=== PATIENT | female | born 1970 | race Caucasian/White ===

== ENCOUNTER 2018-06-27 13:38 | Emergency (ER) | payer OTHER ==
[2018-06-27] MEDS ORDERED: ACETAMINOPHEN 325 MG TABLET PO ONE (14:47)
--- NOTE | 2018-06-27 14:51 | ER Document Report ---
HPI - HPI Patient complains to provider of: ankle injury Time Seen by Provider: 06/27/18 14:38 Onset: Yesterday Onset/Duration: Sudden Quality of pain: Achy Pain Level: 3 Context: Patient reports that she was walking down stairs at work while wearing tennis shoes and slipped on algae covered stairs. Patient rolled her left ankle yesterday. Patient complains of lateral ankle tenderness. Associated Symptoms: Other - Left ankle injury Exacerbated by: Standing, Movement, Walking Relieved by: Denies Similar symptoms previously: No Recently seen / treated by doctor: No - ROS ROS below otherwise negative: Yes Systems Reviewed and Negative: Yes All other systems reviewed and negative - CONSTITUTIONAL Constitutional: DENIES: Fever - GASTROINTESTINAL Gastrointestinal: DENIES: Nausea - REPRODUCTIVE Reproductive: DENIES: : - MUSCULOSKELETAL Musculoskeletal: REPORTS: Extremity pain, Swelling - DERM Skin Color: Ecchymosis Skin Problems: None Past Medical History - General Information source: Patient - Social History Smoking Status: Never Smoker Frequency of alcohol use: None Drug Abuse: None Occupation: house keeping Family History: Reviewed & Not Pertinent - Past Medical History Cardiac Medical History: Reports: Hx Hypertension Psychiatric Medical History: Reports: Hx Anxiety Past Surgical History: Reports: Hx Hysterectomy Vertical Provider Document - CONSTITUTIONAL Agree With Documented VS: Yes Exam Limitations: No Limitations General Appearance: WD/WN, No Apparent Distress - INFECTION CONTROL TRAVEL OUTSIDE OF THE [place] IN LAST 30 DAYS: No - HEENT HEENT: Atraumatic, Normocephalic - NECK Neck: Normal Inspection, Supple - RESPIRATORY Respiratory: No Respiratory Distress - CARDIOVASCULAR Pulses: Normal: Dorsalis pedis - MUSCULOSKELETAL/EXTREMETIES Musculoskeletal/Extremeties: MAEW, FROM, Tender - Left ankle tenderness over lateral malleolar area with 2+ edema and ecchymosis, no foot tenderness, Edema, Eccymosis - NEURO Level of Consciousness: Awake, Alert, Appropriate Motor/Sensory: No Motor Deficit - DERM Integumentary: Warm, Dry, No Rash Course - Re-evaluation Re-evalutation: 06/27/18 16:20 Discussed results of patient's radiology report with her and concerned about radiopaque foreign body to the left foot. Patient denies any history of puncture wound, patient states she was wearing shoes when she rolled her ankle yesterday at work. Patient encouraged to follow-up with orthopedics for further evaluation of foreign body to the left foot. Patient skin intact to the foot, no concern for recent plantar puncture wound. - Vital Signs Vital signs: Temp Pulse Resp BP Pulse Ox 98.1 F 68 20 126/62 H 96 06/27/18 13:55 06/27/18 13:55 06/27/18 13:55 06/27/18 13:55 06/27/18 13:55 - Diagnostic Test Radiology reviewed: Image reviewed, Reports reviewed Procedures - Immobilization Left Ankle Pre-Proc Neuro Vasc Exam: Normal Immobilizer type: Ankle stirrup Performed by: PCT Post-Proc Neuro Vasc Exam: Normal Alignment checked and good: Yes Discharge - Discharge Clinical Impression: Left ankle sprain Qualifiers: Encounter type: initial encounter Involved ligament of ankle: unspecified ligament Qualified Code(s): S93.402A - Sprain of unspecified ligament of left ankle, initial encounter Foreign body in foot, left Qualifiers: Encounter type: initial encounter Qualified Code(s): S90.852A - Superficial foreign body, left foot, initial encounter Condition: Stable Disposition: HOME, SELF-CARE Instructions: Ankle Stirrup Splint ([facility]), Ice & Elevation ([facility]), Sprained Ankle ([facility]) Additional Instructions: Return immediately for any new or worsening symptoms Followup with your primary care provider, call tomorrow to make a followup appointment Follow-up with orthopedics for further evaluation of foreign body to left foot as well as a recheck of your ankle sprain. Weightbearing as tolerated Prescriptions: Tramadol HCl [Ultram 50 mg Tablet] 50 mg PO ASDIR PRN #10 tablet PRN Reason: Forms: Return to Work Referrals: [email or web address] [Provider Group] - 06/29/18
--- NOTE | 2018-06-27 16:10 | RADIOLOGY REPORT (SQ) ---
EXAM DESCRIPTION: ANKLE LEFT COMPLETE COMPLETED DATE/TIME: 06/27/2018 3:15 pm REASON FOR STUDY: slipped on step, L Lat ankle pain COMPARISON: None. NUMBER OF VIEWS: Four views. TECHNIQUE: AP, lateral, and two oblique radiographic images acquired of the left ankle. LIMITATIONS: None. FINDINGS: MINERALIZATION: Normal. BONES: No acute fracture or dislocation. There is calcaneal enthesopathy. JOINTS: Small effusion. SOFT TISSUES: There is mild soft tissue swelling at the lateral ankle. There is a 1.5 cm linear radi opaque density along the lateral aspect of the calcaneus. IMPRESSION: Small effusion at the left ankle. Mild soft tissue swelling at the lateral ankle with n o radiographic evidence for acute fracture. 1.5 cm linear radiopaque density suggestive of an intra- osseous foreign body/needle along the lateral aspect of the calcaneus, please correlate with clinical history/exam. TECHNICAL DOCUMENTATION: JOB ID: [id number] 2010 [employer]- All Rights Reserved Reading location - IP/workstation name: [email or web address]
[2018-06-27 17:22] VITALS: BP 128/61
== END 2018-06-27 17:22 | disposition home or self-care (01) ==
LOC: ER 13:38
DX: S93.402A Sprain of unspecified ligament of left ankle, initial encounter (principal); W10.8XXA Fall (on) (from) other stairs and steps, initial encounter; Y92.832 Beach as the place of occurrence of the external cause; S90.852A Superficial foreign body, left foot, initial encounter; W45.8XXA Other foreign body or object entering through skin, initial encounter; I10 Essential (primary) hypertension
CPT/HCPCS: 99283; 73610; L1902

== ENCOUNTER 2018-11-30 16:08 | Emergency (ER) | payer SELFPAY ==
[2018-11-30 16:17] VITALS: BP 122/74
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
[2018-11-30 17:13] LABS: ABSOLUTE BASOPHILS # (AUTO) 0.1 10^3/uL (0.0-0.2); ABSOLUTE EOSINOPHILS # (AUTO) 0.1 10^3/uL (0.0-0.6); ABSOLUTE LYMPHOCYTES (AUTO) 3.5 10^3/uL (0.5-4.7); ABSOLUTE MONOCYTES (AUTO) 0.4 10^3/uL (0.1-1.4); ABSOLUTE NEUT (AUTO) 4.2 10^3/uL (1.7-8.2); BASOPHILS % (AUTO) 0.8 % (0-2); EOSINOPHILS % (AUTO) 0.9 % (0-6); HEMATOCRIT 41.3 % (36.0-47.0); HEMOGLOBIN 14.4 g/dL (12.0-15.5); LYMPHOCYTES % (AUTO) 41.9 % (13-45); MEAN CORPUSCULAR HEMOGLOBIN 32.6 pg (27.0-33.4); MEAN CORPUSCULAR VOLUME 93 fl (80-97); MONOCYTES % (AUTO) 5.4 % (3-13); PLATELET COUNT 321 10^3/uL (150-450); RED BLOOD COUNT 4.42 10^6/uL (3.72-5.28); RED CELL DISTRIBUTION WIDTH 13.4 % (11.5-14.0); TOTAL CELLS COUNTED % (AUTO) 100 %; WHITE BLOOD COUNT 8.3 10^3/uL (4.0-10.5)
[2018-11-30 17:15] LABS: APPEARANCE,URINE SLIGHTLY-CLOUDY; BILIRUBIN,URINE NEGATIVE (NEGATIVE); GLUCOSE, URINE NEGATIVE (NEGATIVE); KETONES,URINE TRACE mg/dL (NEGATIVE); LEUKOCYTE ESTERASE,URINE NEGATIVE (NEGATIVE); NITRITE,URINE NEGATIVE (NEGATIVE); PROTEIN,URINE NEGATIVE (NEGATIVE); URINE SPECIFIC GRAVITY 1.029; UROBILINOGEN,URINE NEGATIVE mg/dL (<2.0)
[2018-11-30 17:18] LABS: COLOR,URINE DARK YELLOW
[2018-11-30 17:36] LABS: ALANINE AMINOTRANSFERASE 32 U/L (9-52); ALBUMIN 4.3 g/dL (3.5-5.0); ALKALINE PHOSPHATASE 82 U/L (38-126); ANION GAP 9 (5-19); ASPARTATE AMINO TRANSFERASE 38 U/L (14-36); BILIRUBIN,DIRECT 0.3 mg/dL (0.0-0.4); BILIRUBIN,TOTAL 0.6 mg/dL (0.2-1.3); BLOOD UREA NITROGEN 13 mg/dL (7-20); CALCIUM 9.6 mg/dL (8.4-10.2); CARBON DIOXIDE 23 mmol/L (22-30); CHLORIDE 106 mmol/L (98-107); GLUCOSE 97 mg/dL (75-110); SODIUM 138.4 mmol/L (137-145); TOTAL PROTEIN 7.7 g/dL (6.3-8.2)
[2018-11-30 17:37] LABS: ACETAMINOPHEN < 10 ug/mL (10-30); ALCOHOL < 10 mg/dL (NONE DETECTED); SALICYLATE < 1.0 mg/dL (2.0-20.0)
[2018-11-30 17:47] LABS: URINE AMPHETAMINES SCREEN NEGATIVE; URINE BARBITURATES SCREEN NEGATIVE; URINE BENZODIAZEPINES SCREEN NEGATIVE; URINE COCAINE SCREEN NEGATIVE; URINE MARIJUANA (THC) SCREEN NEGATIVE; URINE METHADONE SCREEN NEGATIVE; URINE PHENCYCLIDINE SCREEN NEGATIVE
--- NOTE | 2018-11-30 19:03 | ER Document Report ---
ED General - General Chief Complaint: Psych Problem Stated Complaint: ABNORMAL LABS Time Seen by Provider: 11/30/18 16:22 Primary Care Provider: ERIC PEMBERTON MD [NO LOCAL MD] - Follow up as needed Mode of Arrival: Ambulatory Information source: Patient Notes: Patient is a 48-year-old female with past medical history of depression presenting to the emergency department at the advice of her primary care provider. Patient reports she was upstairs in her house when she thought she heard the TV on downstairs. She mentioned this to her who stated that the TV was not on. Patient reports she had an appointment later on the day when her mentioned to her provider that he thought she was hearing voices. Patient does report that she thought she heard the TV on however it was not on. Patient denies any other auditory hallucinations. Patient denies any suicidal or homicidal ideations. Patient denies any recent medication changes. TRAVEL OUTSIDE OF THE [place] IN LAST 30 DAYS: No - Related Data Allergies/Adverse Reactions: No Known Allergies Allergy (Verified 11/30/18 16:10) Past Medical History - General Information source: Patient - Social History Smoking Status: Never Smoker Frequency of alcohol use: None Drug Abuse: None Family History: Reviewed & Not Pertinent Patient has suicidal ideation: No Patient has homicidal ideation: No - Past Medical History Cardiac Medical History: Reports: Hx Hypertension Renal/ Medical History: Denies: Hx Peritoneal Dialysis Psychiatric Medical History: Reports: Hx Anxiety Past Surgical History: Reports: Hx Hysterectomy - Immunizations Immunizations up to date: Yes Review of Systems - Review of Systems Constitutional: No symptoms reported EENT: No symptoms reported Cardiovascular: No symptoms reported Respiratory: No symptoms reported Gastrointestinal: No symptoms reported Genitourinary: No symptoms reported Female Genitourinary: No symptoms reported Musculoskeletal: No symptoms reported Skin: No symptoms reported Hematologic/Lymphatic: No symptoms reported Neurological/Psychological: No symptoms reported Physical Exam - Vital signs Vitals: Temp Pulse Resp BP Pulse Ox 98.4 F 97 16 122/74 97 11/30/18 16:16 11/30/18 16:16 11/30/18 16:16 11/30/18 16:16 11/30/18 16:16 - Notes Notes: PHYSICAL EXAMINATION: GENERAL: Well-appearing, well-nourished and in no acute distress. HEAD: Atraumatic, normocephalic. EYES: Pupils equal round and reactive to light, extraocular movements intact, conjunctiva are normal. ENT: Nares patent, oropharynx clear without exudates. Moist mucous membranes. NECK: Normal range of motion, supple without lymphadenopathy LUNGS: Breath sounds clear to auscultation bilaterally and equal. No wheezes rales or rhonchi. HEART: Regular rate and rhythm without murmurs ABDOMEN: Soft, nontender, nondistended abdomen. No guarding, no rebound. No masses appreciated. Female : deferred Musculoskeletal: Normal range of motion, no pitting or edema. No cyanosis. NEUROLOGICAL: Cranial nerves grossly intact. Normal speech, normal gait. Normal sensory, motor exams PSYCH: Normal mood, normal affect. SKIN: Warm, Dry, normal turgor, no rashes or lesions noted. Course - Re-evaluation Re-evalutation: Patient's labs are unremarkable today. Her EKG shows a sinus rhythm, normal axis, no ST segment elevations or depressions with a regular rate. Patient is not suicidal or homicidal, she is calm, cooperative and answering all questions appropriately. There is no indication at this time to place patient on [facility] paperwork. She was given outside resources for follow-up for her depression. - Vital Signs Vital signs: Temp Pulse Resp BP Pulse Ox 98.4 F 97 16 122/74 97 11/30/18 16:16 11/30/18 16:16 11/30/18 16:16 11/30/18 16:16 11/30/18 16:16 - Laboratory Result Diagrams: 11/30/18 16:40 11/30/18 16:40 Laboratory results interpreted by me: 11/30/18 11/30/18 16:30 16:40 AST 38 H Urine Ketones TRACE H Urine Ascorbic Acid 40 H Salicylates < 1.0 L Acetaminophen < 10 L Discharge - Discharge Clinical Impression: Auditory hallucination Condition: Stable Disposition: HOME, SELF-CARE Additional Instructions: Your lab work today was unremarkable. Since you are not having suicidal or homicidal thoughts we feel is safe to send you home. Please follow-up with [facility] neuropsychiatric team I have enclosed their contact information. Please return to the emergency department if you develop worsening symptoms, suicidal ideations or homicidal ideations. We will be happy to reevaluate you at any time. Referrals: ERIC PEMBERTON MD [NO LOCAL MD] - Follow up as needed
--- NOTE | 2018-12-01 00:32 | EKG REPORT ---
SEVERITY:- BORDERLINE ECG - SINUS RHYTHM LVH BY VOLTAGE : Confirmed by: Jethro Su 01-Dec-2018 00:31:52
== END 2018-11-30 19:21 | disposition home or self-care (01) ==
LOC: ER 16:08
DX: R44.0 Auditory hallucinations (principal); I10 Essential (primary) hypertension; Z90.710 Acquired absence of both cervix and uterus
CPT/HCPCS: 36415; 80053; 80307; 81001; 85025; 93005; 93010; 99284